=== PATIENT | male | born 1955 | race Two or more races ===

== ENCOUNTER → 2021-06-03 | Outpatient (CLI) | payer OTHER ==
[~2021-06-03] MED LIST: ATEN5POW
--- NOTE | 2021-06-03 15:37 | RAD ---
XR CHEST 2V History: Reason: COUGH X 2 WEEKS / Spl. Instructions: / History: Comparison: August 01, 2013 Findings: Elevation the right hemidiaphragm. There is adjacent atelectasis and pleural thickening. Mild left ba silar linear opacities. No definite pleural effusion. No pneumothorax. Postoperative changes right po sterior ribs. Impression: 1. Mild left basilar linear opacities, likely atelectasis. 2. Elevation of the right hemidiaphragm with adjacent atelectasis, unchanged. Electronically signed by: Herb Vázquez DO (06/03/2021 3:34 PM) [id number]
== END ==
LOC: RAD 14:59
PROVIDERS: ATTEND Nurse Practitioner Family
DX: R91.8 Other nonspecific abnormal finding of lung field (principal); J98.6 Disorders of diaphragm; J98.11 Atelectasis; Z98.890 Other specified postprocedural states
CPT/HCPCS: 71046